=== PATIENT | female | born 1985 | race Caucasian/White ===

== ENCOUNTER 2018-08-24 23:30 | Emergency (ER) | payer OTHER, SELFPAY ==
[2018-08-24 23:35] VITALS: BP 174/96; PULSE 104; RESP 18; TEMP 36.8; O2SAT 100; BMI 29.2
--- NOTE | 2018-08-24 23:39 | ED.LOWEXIN ---
HPI - Extremity Injury (Lower) General Chief Complaint: Extremity Injury, Lower Stated Complaint: RIGHT ANKLE/FOOT INJURY TODAY Time Seen by Provider: 08/24/18 23:39 Source: patient Mode of arrival: wheelchair Limitations: no limitations History of Present Illness HPI Narrative: 32-year-old female here for evaluation of right foot injury. She states that prior to arrival she was walking with a load of laundry when she fell over after tripping. States she rolled over her right foot. Has had pain on her foot since then. No other injuries reported from the event except for some abrasions over her knee. No prior injury to this foot. Related Data Home Medications Medication Instructions Recorded Confirmed albuterol sulfate [Ventolin HFA] 2 puff INH Q2HP #0 09/22/12 Previous Rx's Medication Instructions Recorded amoxicillin-pot clavulanate 875 mg PO BID #20 tab 10/04/16 [Augmentin] Allergies Allergy/AdvReac Type Severity Reaction Status Date / Time Sulfa (Sulfonamide Allergy Unknown Unverified 08/15/17 11:48 Antibiotics) [SULFA (SULFONAMIDE ANTIBIOTICS)] Review of Systems Constitutional Denies headache(s) ENT Ears, Nose, Mouth, and Throat: Denies headache(s) Musculoskeletal Comments: Right foot pain Integumentary/Breasts Comments: Abrasions over the right knee Neurologic Denies headache(s) Comments: Tingling in the toes of the right feet Hematologic/Lymphatic Denies easy bleeding and Denies easy bruising PFSH Medical History Healthy adult (Acute) Social History Smoking Status: Current every day smoker Social History Smoking Status: Current every day smoker Exam Initial Vital Signs Initial Vital Signs: Vital Signs Temperature 98.2 F 08/24/18 23:35 Pulse Rate 104 H 08/24/18 23:35 Respiratory Rate 18 08/24/18 23:35 Blood Pressure 174/96 H 08/24/18 23:35 Pulse Oximetry 100 08/24/18 23:35 Const General: cooperative, well developed, well groomed and No acute distress Orientation: alert, awake and oriented x3 Cardio Pulses: dorsalis pedis present on the right Skin Other: Superficial abrasions to the anterior portion of the right knee Neuro Other: Sensation intact to light touch right lower extremity Extrem General: capillary refill normal Other: Full range of motion right knee. Proximal fibula unremarkable. Patient has no tenderness around the ankle or the Achilles tendon. She is tender to palpation of the dorsum of her foot on the plantar aspect of her foot. Psych Appearance: grossly normal and well kempt Procedures Orthopedic Splinting/Casting Injury #1: Side: right Lower Extremity Injury Location: foot Lower Extremity Immobilizer: posterior splint Other Orthopedic Equipment: crutches Post splinting neuro exam: intact and no change Post splinting vascular exam: intact Placed by: Provider Course Orders Ordered: ED Orders 08/24/18 23:41 XR foot RT min 3V Stat Vital Signs - 8 hr 08/24/18 23:35 Temperature 98.2 F Pulse Rate 104 H Respiratory Rate 18 Blood Pressure 174/96 H Pulse Oximetry 100 MDM - Extremity Injury (Lower) Imaging Data X-ray foot: Attestation: I personally reviewed and interpreted this imaging study as follows: My impression: Nondisplaced fracture base of 4th metatarsal MDM Narrative Medical decision making narrative: Patient is neurovascularly intact. Appears to be a fracture at the base of the 4th metatarsal. She was placed in a posterior splint and given crutches. She was given follow-up instructions and care instructions. She expressed understanding and agreement with plan. Patient declined the offer for pain medication. Discharge Plan Departure Patient Disposition: Home Clinical Impression: Foot fracture, right Qualifiers: Encounter type: initial encounter Fracture type: closed Qualified Code(s): S92.901A - Unspecified fracture of right foot, initial encounter for closed fracture Instructions: How to Use Crutches, DI for Foot Fracture, How to Take Care of Your Splint Activity Restrictions/Additional Instructions: On Sunday morning contact your primary doctor and also the [facility] at [phone]. you can do Tylenol and/or ibuprofen for any pain. you need to keep the splint on and keep it clean and keep it dry. return to the emergency department for any new or worsening symptoms Prescriptions: No Action albuterol sulfate [Ventolin HFA] 90 MCG/PUFF HFA aerosol inhaler 2 puff INH Q2HP Qty: 0 RF: 0 amoxicillin-pot clavulanate [Augmentin] 875 MG/125 MG tablet 875 mg PO BID Qty: 20 RF: 0 Stand Alone Forms: Work Release Note
--- NOTE | 2018-08-24 23:41 | DI.RAD.S_ITS ---
PROCEDURE: XR FOOT RT MIN 3V INDICATIONS: Fall off curb TECHNIQUE: 3 views of the foot were acquired. COMPARISON: None. FINDINGS: Bones: There is a horizontal nondisplaced fracture of the base of the fourth metatarsal. There is no second or third metatarsal fracture. There is no dislocation. Soft tissues: No tibiotalar joint effusion. Achilles tendon appears normal. IMPRESSION: Isolated nondisplaced fracture of the base of the fourth metatarsal, in near anatomic alignment. Dictated by: Nacho Hoyos M.D. on 08/25/2018 at 8:19 Approved by: Nacho Hoyos M.D. on 08/25/2018 at 8:20
== END 2018-08-25 00:37 | disposition home or self-care (01) ==
PROVIDERS: Emergency Provider Emergency Medicine
DX: S92.901A Unspecified fracture of right foot, initial encounter for closed fracture (principal); W19.XXXA Unspecified fall, initial encounter
CPT/HCPCS: 29515; 73630; 99282; 99283

== ENCOUNTER → 2018-11-14 16:44 | Outpatient (CLI) | payer OTHER, SELFPAY | PROVIDERS: Visit Provider Physician Assistant | DX: J02.9 Acute pharyngitis, unspecified (principal) | CPT/HCPCS: 87070; 87077; 87147 ==

== ENCOUNTER → 2019-02-19 16:16 | Outpatient (CLI) | payer OTHER, SELFPAY | PROVIDERS: Visit Provider Nurse Practitioner | DX: N89.8 Other specified noninflammatory disorders of vagina (principal); R30.0 Dysuria | CPT/HCPCS: 87086; 87210 ==

== ENCOUNTER 2019-12-19 15:44 | Emergency (ER) | payer OTHER, SELFPAY ==
[2019-12-19 15:55] VITALS: BP 157/99; PULSE 88; RESP 16; TEMP 36.9; O2SAT 98; BMI 32.0
--- NOTE | 2019-12-19 17:30 | DI.RAD.S_ITS ---
PROCEDURE: XR ABDOMEN MIN 2V INDICATIONS: constipation / abd pain TECHNIQUE: 2 views of the abdomen were acquired. COMPARISON: None. FINDINGS: Surgical changes and devices: None. Bowel: No pneumoperitoneum. Nonspecific bowel gas pattern with multiple air-filled nondilated loops of small bowel throughout the abdomen. Soft tissues: An IUD is seen projecting over the pelvis. No suspicious abdominal calcifications. Bones: No suspicious bony abnormalities. IMPRESSION: Nonspecific bowel gas pattern with multiple nondilated air-filled loops of bowel throughout the abdomen. Dictated by: Julio Arango M.D. on 12/19/2019 at 18:44 Approved by: Julio Arango M.D. on 12/19/2019 at 18:46
[2019-12-19 17:50] LABS: Add Manual Diff / Slide Review NO; Basophils Absolute Auto 0 /uL (0-100); Basophils Percent Auto 0.3 % (0-2); Eosinophils Absolute Auto 100 /uL (0-450); Eosinophils Percent Auto 1.2 % (2-4); Hematocrit 39.7 % (36-46); Hemoglobin 13.8 g/dL (12.0-16.0); Lymphocytes Absolute Auto 2000 /uL (1100-4500); Lymphocytes Percent Auto 27.5 % (25-40); Mean Corpuscular HGB Conc 34.7 % (30-36); Mean Corpuscular Hemoglobin 33.9 PG (26-34); Mean Corpuscular Volume 97.8 fL (80-100); Monocytes Absolute Auto 600 /uL (0-900); Monocytes Percent Auto 7.7 % (3-14); Neutrophils Absolute Auto 4700 /uL (1500-7000); Neutrophils Percent Auto 63.3 % (50-75); Platelet Count 174 X10^3/uL (150-400); Red Blood Cell Count 4.06 X10^6/uL (4.0-5.2); Red Cell Distribution Width 11.9 % (11.6-14.8); White Blood Cell Count 7.4 X10^3/uL (4.5-11.0)
[2019-12-19 17:56] LABS: INR 1.2 (0.9-1.3); Prothrombin Time 13.9 SECONDS (10.1-12.7)
[2019-12-19 17:59] LABS: PTT Partial Thromboplastin Tim 32 SECONDS (26.4-36.2)
[2019-12-19 18:02] LABS: Alanine Aminotransferase 447 IU/L (<35); Albumin 5.2 g/dL (3.5-5.0); Albumin Globulin Ratio 1.3 (1.0-2.8); Alkaline Phosphatase 71 U/L (38-126); Aspartate Aminotransferase 439 IU/L (14-36); BUN Creatinine Ratio 29.4 (6-22); Bilirubin Total 1.1 mg/dL (0.2-1.3); Blood Urea Nitrogen 15 mg/dL (7-17); Calcium 10.4 mg/dL (8.4-10.2); Carbon Dioxide 24 mmol/L (22-32); Chloride 101 mmol/L (98-107); Estimated Glomerular Filt Rate > 60.0 mL/min (>60); Globulin 4.1 g/dL (1.7-4.1); Glucose 88 mg/dL (70-100); HEMOLYSIS < 15 (0-50); Lipase 85 U/L (23-300); Potassium 4.1 mmol/L (3.4-5.1); Sodium 137 mmol/L (137-145); Total Protein 9.3 g/dL (6.3-8.2)
[2019-12-19 18:07] LABS: Bacteria Urine Moderate (10-30); Culture Indicated Urine Specimen Cultured; RBC Urine None Seen (0-5/HPF); Squamous Epithelial Cell Urine 5-10 /HPF (0-5/HPF); Urine Comments LEU ESTERASE +; WBC Urine 1-5/HPF (0-5/HPF)
--- NOTE | 2019-12-19 19:31 | ED_ITS ---
HPI - Abdominal Pain General Chief Complaint: Abdominal Pain Stated Complaint: RIGHT SIDE ABD PAIN Time Seen by Provider: 12/19/19 18:08 Source: patient Mode of arrival: Ambulatory Limitations: no limitations History of Present Illness HPI narrative: 34F smoker and heavy daily drinker presents with upwards of 2 weeks of constipation and right sided abdominal pain. She has had no fever chills, no nausea, vomiting, or diarrhea. Her pain is worse with motion and improves with rest. She denies any dietary change, new medications. She has had no exposure to persons with similar symptoms and is otherwise well and free of complaint. MD complaint: abdominal pain Onset (ago): week(s) Pain Consistency: constant Location: diffuse, RUQ and R flank Severity: moderate Quality: cramping and aching Radiation: none Migration to: no migration Relieving factors: rest Exacerbating factors: movement Associated symptoms: nausea Related Data Patient : No Home Medications Medication Instructions Recorded Confirmed albuterol sulfate [Ventolin HFA] 2 puff INH Q2HP #0 09/22/12 12/19/19 Allergies Allergy/AdvReac Type Severity Reaction Status Date / Time Sulfa (Sulfonamide Allergy Unknown Verified 12/19/19 15:59 Antibiotics) [SULFA (SULFONAMIDE ANTIBIOTICS)] Review of Systems Constitutional Constitutional: Denies chills, Denies fatigue, Denies fever(s), Denies frequent falls, Denies lethargy and Denies weakness Eyes Eyes: Denies change in vision, Denies eye discharge, Denies irritation and Denies loss of vision ENT Ears, Nose, Mouth, and Throat: Denies change in voice, Denies dizziness, Denies neck pain, Denies sore throat and Denies throat swelling Cardiovascular Cardiovascular: Denies chest pain, Denies irregular heart rhythm, Denies lightheadedness, Denies palpitations, Denies dyspnea, Denies dyspnea on exertion and Denies orthopnea Respiratory Respiratory: Denies cough, Denies dyspnea, Denies dyspnea on exertion and Denies wheezing Gastrointestinal Gastrointestinal: Reports abdominal pain, Denies change in bowel habits, Reports constipation, Denies diarrhea, Reports nausea and Denies vomiting Musculoskeletal Musculoskeletal: Denies neck pain and Denies numbness Integumentary/Breasts Skin/Breast: Denies pruritus, Denies erythema, Denies rash and Denies wounds Neurologic Neurologic: Denies behavioral changes, Denies confusion, Denies dizziness, Denies frequent falls, Denies loss of vision, Denies numbness and Denies weakness Psychiatric Psychiatric: Denies anxiety, Denies behavioral changes, Denies confusion, Denies depression, Denies homicidal ideation and Denies suicidal ideation Endocrine Endocrine: Denies fatigue, Denies flushing and Denies palpitations Hematologic/Lymphatic Hematologic/Lymphatic: Denies easy bruising Allergic/Immunologic Allergic/Immunologic: Denies urticaria, Denies throat swelling and Denies wheezing Patient History Medical History Healthy adult (Acute) Social History Smoking Status: Current every day smoker Smoking Status: Current every day smoker alcohol intake frequency: 0-2 drinks per day Substance Use Type: does not use Exam Narrative Exam Narrative: GENERAL: [34] year old patient appears stated age. Well- nourished, well-developed patient, in mild distress. Obviously uncomfortable HEAD: Atraumatic. Normocephalic. EYES: Pupils equal round and reactive. Extraocular motions intact. No scleral icterus. No injection or drainage. ENT: Nose without bleeding, purulent drainage. Throat without erythema, tonsillar hypertrophy or exudate. Airway patent. NECK: Trachea midline. Non tender CARDIOVASCULAR: Regular rate and rhythm without murmurs, gallops, or rubs. RESPIRATORY: Clear to auscultation. Breath sounds equal bilaterally. No wheezes, rales, or rhonchi. GASTROINTESTINAL: Abdomen soft, tender in the right upper quadrant, nondistended. Bowel sounds present in all 4 quadrants. EXTREMITIES: No edema or joint tenderness. BACK: Nontender without deformity or crepitance. No flank tenderness. NEURO: AOx3. SKIN: No rash or erythema of visible areas Initial Vital Signs Initial Vital Signs: Vital Signs Temperature 98.4 F 12/19/19 15:55 Pulse Rate 88 12/19/19 15:55 Respiratory Rate 16 12/19/19 15:55 Blood Pressure 157/99 H 12/19/19 15:55 Pulse Oximetry 98 12/19/19 15:55 Course Orders Ordered: ED Orders 12/19/19 17:30 XR abdomen min 2V Stat 12/19/19 17:40 Complete Blood Count AUTO DIFF Stat Comprehensive Metabolic Panel Stat Lipase Stat Partial Thromboplastin Time Stat Prothrombin Time INR Stat 12/19/19 17:47 Urine Culture Stat Urine Microscopic Stat 12/19/19 19:38 US abdomen limited Stat 12/19/19 22:45 Hepatitis Acute Panel Stat Discontinued Medications Sodium Chloride (Normal Saline 0.9%) 1,000 mls @ 1,000 mls/hr IV BOLUS ONE Stop: 12/19/19 20:36 Last Infusion: 12/19/19 22:58 Dose: 0 mls/hr Documented by: Admin: 12/19/19 20:14 Dose: 1,000 mls/hr Documented by: AMILCAR Vital Signs Vital signs: Vital Signs - 8 hr 12/19/19 19:32 12/19/19 23:06 Pulse Rate 78 81 Respiratory Rate 17 18 Blood Pressure 162/94 H 155/101 H Pulse Oximetry 98 100 MDM - Abdominal Pain Lab Data Result diagrams: 12/19/19 17:40 12/19/19 17:40 Labs: Lab Results 12/19/19 12/19/19 12/19/19 Range/Units 17:40 17:40 17:40 WBC 7.4 (4.5-11.0) X10^3/uL RBC 4.06 (4.0-5.2) X10^6/uL Hgb 13.8 (12.0-16.0) g/dL Hct 39.7 (36-46) % MCV 97.8 (80-100) fL MCH 33.9 (26-34) PG MCHC 34.7 (30-36) % RDW 11.9 (11.6-14.8) % Plt Count 174 (150-400) X10^3/uL Neut % (Auto) 63.3 (50-75) % Lymph % (Auto) 27.5 (25-40) % Ballard % (Auto) 7.7 (3-14) % Eos % (Auto) 1.2 L (2-4) % Baso % (Auto) 0.3 (0-2) % Neut # (Auto) 4700 (2001-7938) /uL Lymph # (Auto) 2000 (8497-3973) /uL Ballard # (Auto) 600 (0-900) /uL Eos # (Auto) 100 (0-450) /uL Baso # (Auto) 0 (0-100) /uL PT 13.9 H (10.1-12.7) SECONDS INR 1.2 (0.9-1.3) APTT 32 (26.4-36.2) SECONDS Sodium 137 (137-145) mmol/L Potassium 4.1 (3.4-5.1) mmol/L Chloride 101 (98-107) mmol/L Carbon Dioxide 24 (22-32) mmol/L BUN 15 (7-17) mg/dL Creatinine 0.51 L (0.52-1.04) mg/dL Estimated GFR > 60.0 (>60) mL/min BUN/Creatinine Ratio 29.4 H (6-22) Glucose 88 (70-100) mg/dL Calcium 10.4 H (8.4-10.2) mg/dL Total Bilirubin 1.1 (0.2-1.3) mg/dL AST 439 H (14-36) IU/L ALT 447 H (<35) IU/L Alkaline Phosphatase 71 (38-126) U/L Total Protein 9.3 H (6.3-8.2) g/dL Albumin 5.2 H (3.5-5.0) g/dL Globulin 4.1 (1.7-4.1) g/dL Albumin/Globulin Ratio 1.3 (1.0-2.8) Lipase 85 (23-300) U/L Urine RBC (0-5/HPF) Urine WBC (0-5/HPF) Ur Squamous Epith Cells (0-5/HPF) Urine Bacteria (None) Ur Culture Indicated? Micro UA Comment 12/19/19 Range/Units 17:47 WBC (4.5-11.0) X10^3/uL RBC (4.0-5.2) X10^6/uL Hgb (12.0-16.0) g/dL Hct (36-46) % MCV (80-100) fL MCH (26-34) PG MCHC (30-36) % RDW (11.6-14.8) % Plt Count (150-400) X10^3/uL Neut % (Auto) (50-75) % Lymph % (Auto) (25-40) % Ballard % (Auto) (3-14) % Eos % (Auto) (2-4) % Baso % (Auto) (0-2) % Neut # (Auto) (5585-8559) /uL Lymph # (Auto) (6369-0099) /uL Ballard # (Auto) (0-900) /uL Eos # (Auto) (0-450) /uL Baso # (Auto) (0-100) /uL PT (10.1-12.7) SECONDS INR (0.9-1.3) APTT (26.4-36.2) SECONDS Sodium (137-145) mmol/L Potassium (3.4-5.1) mmol/L Chloride (98-107) mmol/L Carbon Dioxide (22-32) mmol/L BUN (7-17) mg/dL Creatinine (0.52-1.04) mg/dL Estimated GFR (>60) mL/min BUN/Creatinine Ratio (6-22) Glucose (70-100) mg/dL Calcium (8.4-10.2) mg/dL Total Bilirubin (0.2-1.3) mg/dL AST (14-36) IU/L ALT (<35) IU/L Alkaline Phosphatase (38-126) U/L Total Protein (6.3-8.2) g/dL Albumin (3.5-5.0) g/dL Globulin (1.7-4.1) g/dL Albumin/Globulin Ratio (1.0-2.8) Lipase (23-300) U/L Urine RBC None seen (0-5/HPF) Urine WBC 1-5/hpf (0-5/HPF) Ur Squamous Epith Cells 5-10 /hpf H (0-5/HPF) Urine Bacteria Moderate (10-30) H (None) Ur Culture Indicated? Specimen cultured Micro UA Comment Vonda esterase + Point of care testing: Point of Care Testing Test Results Negative Urine Dip Bedside Urine Glucose Negative Bedside Urine Bilirubin + 1 Bedside Urine Ketone +/- 5 Urine Specific [place] 1.020 Bedside Urine Occult Blood - Negative Bedside Urine pH 5.5 Bedside Urine Protein - Negative Bedside Urine Urobilinogen +/- 1mg Bedside Urine Nitrite - Negative Bedside Urine Leukocytes ++ 125 Esterase Imaging Data Abdominal x-ray: Attestation: I personally reviewed and interpreted this imaging study as follows: My Impression: No SBO Radiologist's Impression: Natasha Benítez 34 F [address] [address] XRay Report Signed Patient: Natasha Benítez [facility]#: [id number] : 1985Acct:[id number] Age/Sex: 34 / FDate of Service: 12/19/19 Loc: ED Accession Number: [id number] Procedure: XR abdomen min 2V Ordering Provider: Yoshi Aquino MD PROCEDURE: XR ABDOMEN MIN 2V INDICATIONS: constipation / abd pain TECHNIQUE: 2 views of the abdomen were acquired. COMPARISON: None. FINDINGS: Surgical changes and devices: None. Bowel: No pneumoperitoneum. Nonspecific bowel gas pattern with multiple air- filled nondilated loops of small bowel throughout the abdomen. Soft tissues: An IUD is seen projecting over the pelvis. No suspicious ab dominal calcifications. Bones: No suspicious bony abnormalities. IMPRESSION: Nonspecific bowel gas pattern with multiple nondilated air-filled loops of bowel throughout the abdomen. Dictated by: Julio Arango M.D. on 12/19/2019 at 18:44 Approved by: Julio Arango M.D. on 12/19/2019 at 18:46 US - abdomen: Radiologist's Impression: Chart Viewer Diagnostics DATE TYPE STATUS REF RANGE/AUTHOR Hx 12/19/19 19:38 Julio Arango 12/19/19 17:30 Julio Arango 08/24/18 23:41 RomainNacho Natasha Benítez N 34, F1985 DEP ER, [facility] ED 157.48cm 79.379kg BMI: 32.0kg/m? Abdominal Pain Search Chart No Data to Display ONSET 12/19/19 23:06 Natasha Benítez N 34 F [address] [address] Ultrasound Report Signed Patient: Natasha Benítez [facility]#: [id number] : 1985Acct:[id number] Age/Sex: 34 / FDate of Service: 12/19/19 Loc: ED Accession Number: [id number] Procedure: US abdomen limited Ordering Provider: Anil Aggarwal D.O. PROCEDURE: US ABDOMEN LIMITED INDICATIONS: PAIN; ELEVATED LFTS TECHNIQUE: Real-time scanning was performed of the abdominal and retroperitoneal organs, with image documentation. COMPARISON: None. FINDINGS: Liver: Diffusely increased echogenicity is seen in the liver with attenuation of the posterior structures. The liver is normal in size. Gallbladder: The gallbladder appears normal without gallstones or gallbladder wall thickening. Biliary ducts: Intrahepatic bile ducts are non-dilated. Extrahepatic bile duct caliber measures 5 mm. Normal is 6-7 mm or less in diameter, or 10 mm or less post-cholecystectomy. Pancreas: Visualized portions of the pancreas are sonographically normal. Miscellaneous: No free right upper quadrant fluid. IMPRESSION: Increased hepatic echogenicity noted possibly related to hepatic steatosis but other sources of hepatocellular disease cannot be excluded. Recommend clinical correlation. Dictated by: Julio Arango M.D. on 12/19/2019 at 21:27 Approved by: Julio Arango M.D. on 12/19/2019 at 21:29 MDM Narrative Medical decision making narrative: Multiple etiologies for patient's symptoms considered including: [Viral hepatitis versus gallbladder disease versus bowel obstruction versus nonspecific enteritis versus other] Patient's symptoms improved over duration of stay with above-stated therapies. Findings and discharge diagnosis discussed with patient/family followed by verbalization of understanding Return precautions discussed with patient/family whom verbalize understanding. Discharge Plan Departure Patient Disposition: Home Clinical Impression: Elevated transaminase level Abdominal pain Qualifiers: Abdominal location: generalized Qualified Code(s): R10.84 - Generalized abdominal pain Constipation Qualifiers: Constipation type: unspecified constipation type Qualified Code(s): K59.00 - Constipation, unspecified Discharge Date/Time: 12/19/19 23:08 Instructions: DI for Abdominal Pain-Adult, DI for Constipation Activity Restrictions/Additional Instructions: *You have been diagnosed with [constipation and elevated liver enzymes] *What to do: *Take medications as directed *Follow up with your primary care provider in 2-3 days, call for an appointment. Let them know you were seen in the Emergency Department and that we ask that you be seen in follow up *Return to ER if you should have any new, worsening or concerning symptom *You have been diagnosed with [ abdominal pain due to constipation ] *What to do: *Take over the counter medications as directed: 1. Metamucil - is a bulk forming laxative and adds fiber 2. Colace - softens your stool 3. Dulcolax suppository - stimulates your bowels *Follow up with your primary care provider in 2-3 days, call for appo intment *Return to ER if you should have any new, worsening or concerning symptoms *Drink plenty of water and eat foods high in fiber *Stay as active as you can as this helps move your bowels as well Prescriptions: No Action albuterol sulfate [Ventolin HFA] 90 MCG/PUFF HFA aerosol inhaler 2 puff INH Q2HP Qty: 0 RF: 0
[2019-12-19 19:32] VITALS: BP 162/94; PULSE 78; RESP 17; O2SAT 98
--- NOTE | 2019-12-19 19:38 | DI.US.S_ITS ---
PROCEDURE: US ABDOMEN LIMITED INDICATIONS: PAIN; ELEVATED LFTS TECHNIQUE: Real-time scanning was performed of the abdominal and retroperitoneal organs, with image documentation. COMPARISON: None. FINDINGS: Liver: Diffusely increased echogenicity is seen in the liver with attenuation of the posterior structures. The liver is normal in size. Gallbladder: The gallbladder appears normal without gallstones or gallbladder wall thickening. Biliary ducts: Intrahepatic bile ducts are non-dilated. Extrahepatic bile duct caliber measures 5 mm. Normal is 6-7 mm or less in diameter, or 10 mm or less post-cholecystectomy. Pancreas: Visualized portions of the pancreas are sonographically normal. Miscellaneous: No free right upper quadrant fluid. IMPRESSION: Increased hepatic echogenicity noted possibly related to hepatic steatosis but other sources of hepatocellular disease cannot be excluded. Recommend clinical correlation. Dictated by: Julio Arango M.D. on 12/19/2019 at 21:27 Approved by: Julio Arango M.D. on 12/19/2019 at 21:29
[2019-12-19] MEDS: SODIUM CHLORIDE 0.9% 1,000 ML 1000 ML IV (20:14)
[2019-12-19 23:06] VITALS: BP 155/101; PULSE 81; RESP 18; O2SAT 100
[2019-12-21 06:38] LABS: HBsAg Screen Negative (Negative); Hepatitis A Antibody IgM Negative (Negative); Hepatitis B Core Antibody IgM Negative (Negative); Hepatitis C Antibody <0.1 s/co ratio (0.0-0.9)
== END 2019-12-19 23:08 | disposition home or self-care (01) ==
PROVIDERS: Emergency Medicine; Emergency Provider Emergency Medicine
DX: R10.84 Generalized abdominal pain (principal); R74.0 Nonspecific elevation of levels of transaminase and lactic acid dehydrogenase [LDH]; K59.00 Constipation, unspecified; R11.0 Nausea
CPT/HCPCS: 36415; 74019; 76705; 80053; 80074; 81003; 81015; 81025; 83690; 85025; 85610; 85730; 87086; 93005; 93010; 96360; 96361; 99284

== ENCOUNTER → 2020-01-28 15:45 | Outpatient (CLI) | payer OTHER, SELFPAY ==
[2020-01-28 16:33] LABS: Alanine Aminotransferase 358 IU/L (<35); Albumin 4.7 g/dL (3.5-5.0); Albumin Globulin Ratio 1.5 (1.0-2.8); Alkaline Phosphatase 65 U/L (38-126); Aspartate Aminotransferase 281 IU/L (14-36); BUN Creatinine Ratio 20.4 (6-22); Bilirubin Total 0.6 mg/dL (0.2-1.3); Blood Urea Nitrogen 11 mg/dL (7-17); Carbon Dioxide 26 mmol/L (22-32); Chloride 100 mmol/L (98-107); Estimated Glomerular Filt Rate > 60.0 mL/min (>60); Globulin 3.2 g/dL (1.7-4.1); Glucose 88 mg/dL (70-100); HEMOLYSIS < 15 (0-50); Potassium 4.5 mmol/L (3.4-5.1); Sodium 136 mmol/L (137-145); Total Protein 7.9 g/dL (6.3-8.2)
== END ==
PROVIDERS: PCP Family Medicine; Referring Provider Family Medicine; Visit Provider Family Medicine
DX: R74.0 Nonspecific elevation of levels of transaminase and lactic acid dehydrogenase [LDH] (principal)
CPT/HCPCS: 36415; 80053

== ENCOUNTER → 2020-12-22 16:09 | Outpatient (CLI) | payer OTHER, SELFPAY | PROVIDERS: PCP Family Medicine; Visit Provider Nurse Practitioner | DX: N34.3 Urethral syndrome, unspecified (principal) | CPT/HCPCS: 87086 ==

== ENCOUNTER → 2023-08-07 16:09 | Outpatient (CLI) | payer OTHER, SELFPAY | LOC: LAB 16:14 | PROVIDERS: PCP Family Medicine; Visit Provider Nurse Practitioner Family | DX: N39.0 Urinary tract infection, site not specified (principal) | CPT/HCPCS: 87077; 87086; 87186 ==

== ENCOUNTER → 2024-07-30 13:13 | Outpatient (CLI) | payer OTHER, SELFPAY ==
--- NOTE | 2024-07-30 13:15 | DI.RAD.S_ITS ---
PROCEDURE: XR ANKLE RT MIN 3V INDICATIONS: Right foot and ankle injury TECHNIQUE: 3 views of the ankle were acquired. COMPARISON: None. FINDINGS: Bones: No fractures or dislocations. Ankle mortise is normally aligned. No suspicious bony lesions. Soft tissues: No tibiotalar joint effusion. Achilles tendon appears normal. IMPRESSION: No acute bony abnormality or significant effusion. Dictated by: aNto Song M.D. on 07/30/2024 at 14:12 Approved by: Nato Song M.D. on 07/30/2024 at 14:13
--- NOTE | 2024-07-30 13:15 | DI.RAD.S_ITS ---
PROCEDURE: XR FOOT RT MIN 3V INDICATIONS: Right foot and ankle injury TECHNIQUE: 3 views of the foot were acquired. COMPARISON: None. FINDINGS: Bones: No fractures or dislocations. No suspicious bony lesions. Soft tissues: No tibiotalar joint effusion. Achilles tendon appears normal. IMPRESSION: No acute bony abnormality. Dictated by: Nato Song M.D. on 07/30/2024 at 14:14 Approved by: Nato Song M.D. on 07/30/2024 at 14:14
== END ==
PROVIDERS: PCP Family Medicine; Referring Provider Physician Assistant Surgical; Visit Provider Physician Assistant Surgical
DX: S99.911A Unspecified injury of right ankle, initial encounter (principal); S99.921A Unspecified injury of right foot, initial encounter; X58.XXXA Exposure to other specified factors, initial encounter
CPT/HCPCS: 73610; 73630

== ENCOUNTER → 2024-09-08 11:11 | Outpatient (CLI) | payer OTHER, SELFPAY ==
--- NOTE | 2024-09-08 11:12 | DI.MRI.S_ITS ---
POCEDURE: MR ANKLE RT WO CON INDICATIONS: R/O HIGH RIGHT ANKLE SPRAIN TECHNIQUE: Noncontrast sagittal T1 spin echo and T2 fast spin echo with fat saturation, axial proton density fast spin echo and T2 fast spin echo with fat saturation, coronal T1 spin echo and T2 fast spin echo with fat saturation through the ankle/hindfoot. COMPARISON: None. FINDINGS: Image quality: Excellent Tendons: Mild tenosynovitis of the posterior tibialis. The flexor digitorum longus, and the flexor hallucis longus are unremarkable. The extensor tendons are unremarkable. The peroneal longus, and the peroneal brevis are unremarkable. Mild tendinosis of the distal Achilles tendon, without tear. Ligaments: There is small periosteal avulsion fracture of the anterior lateral aspect of the tibial plafond, at the insertion of the anterior tibiofibular ligament, with mild marrow edema (04:24, and 03:24). Marked sprain of the anterior tibiofibular ligament, without tear. The posterior tibiofibular ligament is intact. Sprain of the anterior talofibular ligament, without full-thickness tear. The posterior talofibular ligament is intact. The calcaneal fibular ligament is intact. The deep portion of the deltoid ligament is unremarkable. Sinus tarsi: No fibrosis Plantar fascia: Mild thickening of the central cord, raising concern for plantar fasciitis. Muscles: Mild muscle edema of the abductor hallucis, at the level of the midfoot, likely representing mild muscle strain. No fatty atrophy. Bones: Please see above. Mild degenerative changes of the 1st tarsometatarsal joint, with mild subchondral marrow edema. Small tibiotalar and posterior subtalar effusion. IMPRESSION: 1. Small periosteal avulsion fracture of the anterior lateral aspect of the tibial plafond, at the insertion of the anterior tibiofibular ligament, with mild marrow edema. Marked sprain of the anterior tibiofibular ligament, without tear. 2. Sprain of the anterior talofibular ligament. 3. Plantar fasciitis. 4. Mild muscle strain of the abductor hallucis. 5. Mild degenerative changes 1st tarsometatarsal joint. Dictated by: Shayla Roman M.D. on 09/08/2024 at 13:44 Approved by: Shayla Roman M.D. on 09/08/2024 at 13:56
== END ==
PROVIDERS: PCP Family Medicine; Referring Provider Podiatrist Foot & Ankle Surgery; Visit Provider Podiatrist Foot & Ankle Surgery
DX: S82.871A Displaced pilon fracture of right tibia, initial encounter for closed fracture (principal); S93.431A Sprain of tibiofibular ligament of right ankle, initial encounter; S93.491A Sprain of other ligament of right ankle, initial encounter; S86.811A Strain of other muscle(s) and tendon(s) at lower leg level, right leg, initial encounter; M79.671 Pain in right foot; M72.2 Plantar fascial fibromatosis
CPT/HCPCS: 73721

== ENCOUNTER 2024-12-02 11:30 | Outpatient (RCR) | payer OTHER, SELFPAY ==
--- NOTE | 2024-10-16 12:53 | PT.OIE ---
Current Diagnoses Displaced avulsion fracture (chip fracture) of right talus, subsequent encounter for fracture with routine healing (10/16/24) Sprain of tibiofibular ligament of right ankle, subsequent encounter (10/16/24) Past Medical History (Last Reviewed 12/22/20 @ 17:29 by SANDHYA Denise) Healthy adult Visit Care Team Role Provider Type Onofre Dias MD Family Provider Non-Staff Primary Care Provider Specialty: Medical Address: [address] [place] [address], [id number] Email: Aurelio Mares DPM Attending Provider Physician Referring Provider Specialty: Orthopedics Orthopedic Surgery Podiatry General Surgery Address: [address] [place] [address], [id number] Email: [email or web address] Physical Therapy Initial Evaluation PT-OP-A Visit Information Start: 10/16/24 09:45 Freq: Status: Active Protocol: Document 10/16/24 09:46 BL (Rec: 10/16/24 12:53 BL Laptop) Out-Patient Physical Therapy Visit Information Visit Information Visit Type Initial Evaluation Visit Start Time 10:45 Visit Stop Time 11:25 Visit Number (1) 05/16 (PN by 11/15/24) Number of CLIENT INSIGHTS CONSULTANT Visits 0 Evaluation Information Evaluation Date 10/16/24 PT-OP-C Subjective Start: 10/16/24 09:45 Freq: Status: Active Protocol: Document 10/16/24 09:46 BL (Rec: 10/16/24 12:53 BL Laptop) OP-PT Subjective Patient Comments Patient Comments Pt presents to the clinic this date with concerns of R lateral ankle stiffness and minimal pain. Pt states at most recent follow up with privacy specialist she was instructed to wear boot at all times, including sleeping. Pt states she feels increased stiffness but that the pain has greatly improved. 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 States she is unable to go up and down steps without assistance. Pt reports she feels her ankle needs to pop, states improved feeling after working on ROM activities at home. Reports she continues to ice 2x daily and elevates as she can. States her biggest goals for therapy are to be able to return to work without pain. Patient Reported Improving Progress Patient Questionnaires Lower Extremity Functional Scale LEFS Score 17% function PT-OP-D Balance Start: 10/16/24 09:45 Freq: Status: Active Protocol: Document 10/16/24 09:46 BL (Rec: 10/16/24 12:53 BL Laptop) Balance Tests Single Limb Standing Single Limb- Right 1 second Single Limb- Left 1 second PT-OP-H Neuro Start: 10/16/24 09:45 Freq: Status: Active Protocol: Document 10/16/24 09:46 BL (Rec: 10/16/24 12:53 BL Laptop) Sensation Evaluation Comments Summary Comments Pt reports numbness on the bottom of her foot first thing in the morning that resolves within a few minutes Coordination Evaluation Comments Coordination pt reports no changes in coordination. Comments PT-OP-J Posture/Palpation/Skin Start: 10/16/24 09:45 Freq: Status: Active Protocol: Document 10/16/24 09:46 BL (Rec: 10/16/24 12:53 BL Laptop) Posture Evaluation Comments Posture Comments Pt presents with CAM boot and tennis shoe on L LE, demos drop in L pelvis likely due to boot, pt demos slight knee flexion in standing to R side. Skin pink and healthy with no further ecchymosis noted this date. Palpation Assessment Location R ankle Palpation Details Pt demos slight tenderness through lateral ankle over talofibular ligament, increased tissue resistance noted . PT-OP-K Range of Motion Start: 10/16/24 09:45 Freq: Status: Active Protocol: Document 10/16/24 09:46 BL (Rec: 10/16/24 12:53 BL Laptop) Hip Goniometric Range of Motion Hip ROM Limitations Comments HIP AROM porsche WFL Knee Goniometric Range of Motion Knee ROM Limitations Comments Knee AROM porsche WFL Ankle and Foot Goniometric Range of Motion Ankle and Foot Right Dorsiflexion with 2 Knee Flexed Plantarflexion 60 Inversion 25 Eversion 15 left Ankle/Foot ROM WFL Yes Dorsiflexion with 20 Knee Flexed Plantarflexion 60 Inversion 20 Eversion 30 PT-OP-Q Treatments Start: 10/16/24 09:45 Freq: Status: Active Protocol: Document 10/16/24 09:46 BL (Rec: 10/16/24 12:53 BL Laptop) Therapeutic Exercises Sitting Exercises strength Sitting Exercise arch lifts, Name ROM Sitting Exercise alphabet, windshield wipers, towel crunches, heel Name slides PT-OP-T Assessment and Plan Start: 10/16/24 09:45 Freq: Status: Active Protocol: Document 10/16/24 09:46 BL (Rec: 10/16/24 12:53 BL Laptop) Physical Therapy Assessment Rehab Potential Rehabilitation Good Potential Evaluation Complexity Number of Personal 1-2 Factors/ Comorbidities Number of Body 3 Systems Impaired Clinical Evolving Presentation at Evaluation Impairments Impairments Activity Tolerance,Balance,Coordination,Functional Activities,Functional Mobility,Gait,Pain,Posture,ROM, Sensation,Soft Tissue Mobility,Strength Goals Three Fruit Coordinator Goal (LTG) Pt will report being able to go up and down steps with step through pattern by DC for improved independence. Two Fruit Coordinator Goal (LTG) Pt will be able to stand on R LE in SLS x 15 seconds by DC for improved safety with ADLS. One Short Term Goal (STG pt will be ind with HEP within 2 visits in order to ) progress toward detention therapy goal outside of therapy visits [facility] Goal (LTG) Pt will demo improved LEFS score to 80 function or better by DC for return to work duties Assessment Summary Assessment Pt presents to the clinic with R MIGUELITO renteria in place, pt tripped in July of 2024 leading to inversion type sprain with avulsion fracture to distal fibula. Pt presents this date with limitations in ROM and strength as well as balance deficits. Pt will benefit from strength and endurance training in order to improve functional mobility and stability for safe return to PLOF. Physical Therapy Plan Frequency and Duration Frequency of 2x/Week Treatment Duration of 12 treatment (weeks) Plan of Care Start 10/16/24 Date Plan of Care End 01/08/25 Date Therapeutic Interventions Therapeutic Balance Training,Coordination Training,Gait Training, Interventions Home Exercise Program,Joint Mobilizations,Manual Therapy,Neuromuscular Re-education,Patient/Caregiver Education,Self-Care/Home Management,Sensory Integration ,Soft Tissue Mobilization,Taping,Therapeutic Activities ,Therapeutic Exercises Modalities Cold Pack/Ice Massage,Electric Stimulation,Hot Packs, Infrared Therapy,Iontophoresis,Paraffin Bath,Traction- Mechanical,Ultrasound Next Visit Focus/Plan Next Note Type Treatment Note Next Visit Plan ankle ROM, strength, Soft tissue mobilization, ankle intrinsics
--- NOTE | 2024-10-16 12:54 | PT.OPPOC ---
Physical, Occupational & Speech Therapy At [facility] Current Diagnoses Displaced avulsion fracture (chip fracture) of right talus, subsequent encounter for fracture with routine healing (10/16/24) Sprain of tibiofibular ligament of right ankle, subsequent encounter (10/16/24) Visit Care Team Role Provider Type Onofre Dias MD Family Provider Non-Staff Primary Care Provider Specialty: Medical Address: [address] [place] [address], [address] Email: Aurelio Mares DPM Attending Provider Physician Referring Provider Specialty: Orthopedics Orthopedic Surgery Podiatry General Surgery Address: [address] [place] [address], [place], [address] Email: [email or web address] Plan Of Care PT-OP-T Assessment and Plan Start: 10/16/24 09:45 Freq: Status: Active Protocol: Document 10/16/24 09:46 BL (Rec: 10/16/24 12:53 BL Laptop) Physical Therapy Assessment Rehab Potential Rehabilitation Good Potential Evaluation Complexity Number of Personal 1-2 Factors/ Comorbidities Number of Body 3 Systems Impaired Clinical Evolving Presentation at Evaluation Impairments Impairments Activity Tolerance,Balance,Coordination,Functional Activities,Functional Mobility,Gait,Pain,Posture,ROM, Sensation,Soft Tissue Mobility,Strength Goals Three District Fire Management Officer Goal (LTG) Pt will report being able to go up and down steps with step through pattern by DC for improved independence. Two District Fire Management Officer Goal (LTG) Pt will be able to stand on R LE in SLS x 15 seconds by DC for improved safety with ADLS. One Short Term Goal (STG pt will be ind with HEP within 2 visits in order to ) progress toward prison therapy goal outside of therapy visits [facility] Goal (LTG) Pt will demo improved LEFS score to 80 function or better by DC for return to work duties Assessment Summary Assessment Pt presents to the clinic with R CAM boot in place, pt tripped in July of 2024 leading to inversion type sprain with avulsion fracture to distal fibula. Pt presents this date with limitations in ROM and strength as well as balance deficits. Pt will benefit from strength and endurance training in order to improve functional mobility and stability for safe return to PLOF. Physical Therapy Plan Frequency and Duration Frequency of 2x/Week Treatment Duration of 12 treatment (weeks) Plan of Care Start 10/16/24 Plan of Care End 01/08/25 Date Therapeutic Interventions Therapeutic Balance Training,Coordination Training,Gait Training, Interventions Home Exercise Program,Joint Mobilizations,Manual Therapy,Neuromuscular Re-education,Patient/Caregiver Education,Self-Care/Home Management,Sensory Integration ,Soft Tissue Mobilization,Taping,Therapeutic Activities ,Therapeutic Exercises Modalities Cold Pack/Ice Massage,Electric Stimulation,Hot Packs, Infrared Therapy,Iontophoresis,Paraffin Bath,Traction- Mechanical,Ultrasound Next Visit Focus/Plan Next Note Type Treatment Note Next Visit Plan ankle ROM, strength, Soft tissue mobilization, ankle intrinsics Plan of Care Dates Plan of Care Start Date 10/16/24 Plan of Care End Date 01/08/25 Electronically Signed by: Santino French PT 10/16/24 2133 If you are in agreement with this Plan of Care, please return a signed and dated copy. I have reviewed this Plan of Care and certify that the skilled therapy services above are required to meet the patient?s needs. Physician Signature Date Printed Name and Credentials Clinical Instructor Signature Printed Name and Credentials
--- NOTE | 2024-10-21 10:26 | PT.OTN ---
Current Diagnoses Displaced avulsion fracture (chip fracture) of right talus, subsequent encounter for fracture with routine healing (10/21/24) Sprain of tibiofibular ligament of right ankle, subsequent encounter (10/21/24) Physical Therapy Treatment Note PT-OP-A Visit Information Start: 10/16/24 09:45 Freq: Status: Active Protocol: Document 10/21/24 09:51 BL (Rec: 10/21/24 10:26 BL Laptop) Out-Patient Physical Therapy Visit Information Visit Information Visit Type Treatment Note Visit Start Time 09:45 Visit Stop Time 10:25 Visit Number (2) 2/ (PN by 11/15/24) Number of FAT PRESSROOM WORKER Visits 0 PT-OP-C Subjective Start: 10/16/24 09:45 Freq: Status: Active Protocol: Document 10/21/24 09:51 BL (Rec: 10/21/24 10:26 BL Laptop) OP-PT Subjective Patient Comments Patient Comments Pt present to the clinic this date and reports she is doing well, HEP going well, states no increased soreness in ankle and reports she was pretty active over the weekend in her boot. PT-OP-D Balance Start: 10/16/24 09:45 Freq: Status: Active Protocol: Document 10/16/24 09:46 BL (Rec: 10/16/24 12:53 BL Laptop) Balance Tests Single Limb Standing Single Limb- Right 1 second Single Limb- Left 1 second PT-OP-H Neuro Start: 10/16/24 09:45 Freq: Status: Active Protocol: Document 10/16/24 09:46 BL (Rec: 10/16/24 12:53 BL Laptop) Sensation Evaluation Comments Summary Comments Pt reports numbness on the bottom of her foot first thing in the morning that resolves within a few minutes Coordination Evaluation Comments Coordination pt reports no changes in coordination. Comments PT-OP-J Posture/Palpation/Skin Start: 10/16/24 09:45 Freq: Status: Active Protocol: Document 10/16/24 09:46 BL (Rec: 10/16/24 12:53 BL Laptop) Posture Evaluation Comments Posture Comments Pt presents with CAM boot and tennis shoe on L LE, demos drop in L pelvis likely due to boot, pt demos slight knee flexion in standing to R side. Skin pink and healthy with no further ecchymosis noted this date. Palpation Assessment Location R ankle Palpation Details Pt demos slight tenderness through lateral ankle over talofibular ligament, increased tissue resistance noted . PT-OP-K Range of Motion Start: 10/16/24 09:45 Freq: Status: Active Protocol: Document 10/16/24 09:46 BL (Rec: 10/16/24 12:53 BL Laptop) Hip Goniometric Range of Motion Hip ROM Limitations Comments HIP AROM porsche WFL Knee Goniometric Range of Motion Knee ROM Limitations Comments Knee AROM porsche WFL Ankle and Foot Goniometric Range of Motion Ankle and Foot Right Dorsiflexion with 2 Knee Flexed Plantarflexion 60 Inversion 25 Eversion 15 left Ankle/Foot ROM WFL Yes Dorsiflexion with 20 Knee Flexed Plantarflexion 60 Inversion 20 Eversion 30 PT-OP-Q Treatments Start: 10/16/24 09:45 Freq: Status: Active Protocol: Document 10/21/24 09:51 BL (Rec: 10/21/24 10:26 BL Laptop) Therapeutic Exercises Sitting Exercises strength Sitting Exercise arch lifts, 4way TB, Name Resistance resistance lvl 1 ROM Sitting Exercise alphabet, windshield wipers, towel crunches, heel Name slides PT-OP-T Assessment and Plan Start: 10/16/24 09:45 Freq: Status: Active Protocol: Document 10/21/24 09:51 BL (Rec: 10/21/24 10:26 BL Laptop) Physical Therapy Assessment Goals Three Fci Goal (LTG) Pt will report being able to go up and down steps with step through pattern by DC for improved independence. Two Fci Goal (LTG) Pt will be able to stand on R LE in SLS x 15 seconds by DC for improved safety with ADLS. One Short Term Goal (STG pt will be ind with HEP within 2 visits in order to ) progress toward fpc therapy goal outside of therapy visits Nursery Laborer Goal (LTG) Pt will demo improved LEFS score to 80 function or better by DC for return to work duties Assessment Summary Assessment Pt demos good compliance with HEP and tolerates advancement well today. Pt continues to demo limitations in ROM and strength. Progress per pt tolerance. Physical Therapy Plan Frequency and Duration Frequency of 2x/Week Treatment Duration of 12 treatment (weeks) Plan of Care Start 10/16/24 Date Plan of Care End 01/08/25 Date Therapeutic Interventions Therapeutic Balance Training,Coordination Training,Gait Training, Interventions Home Exercise Program,Joint Mobilizations,Manual Therapy,Neuromuscular Re-education,Patient/Caregiver Education,Self-Care/Home Management,Sensory Integration ,Soft Tissue Mobilization,Taping,Therapeutic Activities ,Therapeutic Exercises Modalities Cold Pack/Ice Massage,Electric Stimulation,Hot Packs, Infrared Therapy,Iontophoresis,Paraffin Bath,Traction- Mechanical,Ultrasound Next Visit Focus/Plan Next Note Type Treatment Note Next Visit Plan ankle ROM, strength, Soft tissue mobilization, ankle intrinsics
--- NOTE | 2024-10-23 10:43 | PT.OTN ---
Current Diagnoses Displaced avulsion fracture (chip fracture) of right talus, subsequent encounter for fracture with routine healing (10/23/24) Sprain of tibiofibular ligament of right ankle, subsequent encounter (10/23/24) Physical Therapy Treatment Note PT-OP-A Visit Information Start: 10/16/24 09:45 Freq: Status: Active Protocol: Document 10/23/24 09:45 BL (Rec: 10/23/24 10:43 BL Laptop) Out-Patient Physical Therapy Visit Information Visit Information Visit Type Treatment Note Visit Start Time 09:45 Visit Stop Time 10: Visit Number (3) 3/ (PN by 11/15/24) Number of CUSTOMER ENGINEERING SPECIALIST Visits 0 PT-OP-C Subjective Start: 10/16/24 09:45 Freq: Status: Active Protocol: Document 10/23/24 09:45 BL (Rec: 10/23/24 10:43 BL Laptop) OP-PT Subjective Patient Comments Patient Comments Pt presents to the clinic this date and reports she is doing ok, feels she is sore following the exercise. PT-OP-D Balance Start: 10/16/24 09:45 Freq: Status: Active Protocol: Document 10/16/24 09:46 BL (Rec: 10/16/24 12:53 BL Laptop) Balance Tests Single Limb Standing Single Limb- Right 1 second Single Limb- Left 1 second PT-OP-H Neuro Start: 10/16/24 09:45 Freq: Status: Active Protocol: Document 10/16/24 09:46 BL (Rec: 10/16/24 12:53 BL Laptop) Sensation Evaluation Comments Summary Comments Pt reports numbness on the bottom of her foot first thing in the morning that resolves within a few minutes Coordination Evaluation Comments Coordination pt reports no changes in coordination. Comments PT-OP-J Posture/Palpation/Skin Start: 10/16/24 09:45 Freq: Status: Active Protocol: Document 10/16/24 09:46 BL (Rec: 10/16/24 12:53 BL Laptop) Posture Evaluation Comments Posture Comments Pt presents with CAM boot and tennis shoe on L LE, demos drop in L pelvis likely due to boot, pt demos slight knee flexion in standing to R side. Skin pink and healthy with no further ecchymosis noted this date. Palpation Assessment Location R ankle Palpation Details Pt demos slight tenderness through lateral ankle over talofibular ligament, increased tissue resistance noted . PT-OP-K Range of Motion Start: 10/16/24 09:45 Freq: Status: Active Protocol: Document 10/16/24 09:46 BL (Rec: 10/16/24 12:53 BL Laptop) Hip Goniometric Range of Motion Hip ROM Limitations Comments HIP AROM porsche WFL Knee Goniometric Range of Motion Knee ROM Limitations Comments Knee AROM porsche WFL Ankle and Foot Goniometric Range of Motion Ankle and Foot Right Dorsiflexion with 2 Knee Flexed Plantarflexion 60 Inversion 25 Eversion 15 left Ankle/Foot ROM WFL Yes Dorsiflexion with 20 Knee Flexed Plantarflexion 60 Inversion 20 Eversion 30 PT-OP-Q Treatments Start: 10/16/24 09:45 Freq: Status: Active Protocol: Document 10/23/24 09:45 BL (Rec: 10/23/24 10:43 BL Laptop) Therapeutic Exercises Sitting Exercises strength Sitting Exercise arch lifts, 4way TB, BAPS board Lvl3 Name Resistance resistance lvl 1 ROM Sitting Exercise alphabet, windshield wipers, towel crunches, heel Name slides Manual Therapy Treatment Consent Patient gave verbal Yes consent for manual treatment Joint Mobilizations R ankle Comments talo crural AP mob in closed chain, fibular head AP, talo crural distraction. Pt reports improved symptoms following. KT tape applied in fan formation to assist with inflammation. Pt reports understanding of precautions. PT-OP-T Assessment and Plan Start: 10/16/24 09:45 Freq: Status: Active Protocol: Document 10/23/24 09:45 BL (Rec: 10/23/24 10:43 BL Laptop) Physical Therapy Assessment Goals Three Automotive Service Management Teacher Goal (LTG) Pt will report being able to go up and down steps with step through pattern by DC for improved independence. Two Automotive Service Management Teacher Goal (LTG) Pt will be able to stand on R LE in SLS x 15 seconds by DC for improved safety with ADLS. One Short Term Goal (STG pt will be ind with HEP within 2 visits in order to ) progress toward [facility] therapy goal outside of therapy visits [facility] Goal (LTG) Pt will demo improved LEFS score to 80 function or better by DC for return to work duties Assessment Summary Assessment Pt demos good compliance with HEP and tolerates advancement well today. Trialed use of KT tape this date. Pt continues to demo limitations in ROM and strength. Progress per pt tolerance. Plant to follow up with pt after visit with podiatry team next week. Physical Therapy Plan Frequency and Duration Frequency of 2x/Week Treatment Duration of 12 treatment (weeks) Plan of Care Start 10/16/24 Date Plan of Care End 01/08/25 Date Next Visit Focus/Plan Next Note Type Treatment Note Next Visit Plan ankle ROM, strength, Soft tissue mobilization, ankle intrinsics
--- NOTE | 2024-11-04 13:14 | PT.OTN ---
Current Diagnoses Displaced avulsion fracture (chip fracture) of right talus, subsequent encounter for fracture with routine healing (11/04/24) Sprain of tibiofibular ligament of right ankle, subsequent encounter (11/04/24) Physical Therapy Treatment Note PT-OP-A Visit Information Start: 10/16/24 09:45 Freq: Status: Active Protocol: Document 11/04/24 11:41 BL (Rec: 11/04/24 13:14 BL Laptop) Out-Patient Physical Therapy Visit Information Visit Information Visit Type Treatment Note Visit Start Time 11:30 Visit Stop Time 12:10 Visit Number (4) 4/ (PN by 11/15/24) Number of WILDLIFE PROTECTOR Visits 0 PT-OP-C Subjective Start: 10/16/24 09:45 Freq: Status: Active Protocol: Document 11/04/24 11:41 BL (Rec: 11/04/24 13:14 BL Laptop) OP-PT Subjective Patient Comments Patient Comments Pt reports she is doing well, states follow up went great and she was given an ankle brace and instructed to work up towards 5O% of the time being in her brace. PT-OP-D Balance Start: 10/16/24 09:45 Freq: Status: Active Protocol: Document 10/16/24 09:46 BL (Rec: 10/16/24 12:53 BL Laptop) Balance Tests Single Limb Standing Single Limb- Right 1 second Single Limb- Left 1 second PT-OP-H Neuro Start: 10/16/24 09:45 Freq: Status: Active Protocol: Document 10/16/24 09:46 BL (Rec: 10/16/24 12:53 BL Laptop) Sensation Evaluation Comments Summary Comments Pt reports numbness on the bottom of her foot first thing in the morning that resolves within a few minutes Coordination Evaluation Comments Coordination pt reports no changes in coordination. Comments PT-OP-J Posture/Palpation/Skin Start: 10/16/24 09:45 Freq: Status: Active Protocol: Document 10/16/24 09:46 BL (Rec: 10/16/24 12:53 BL Laptop) Posture Evaluation Comments Posture Comments Pt presents with CAM boot and tennis shoe on L LE, demos drop in L pelvis likely due to boot, pt demos slight knee flexion in standing to R side. Skin pink and healthy with no further ecchymosis noted this date. Palpation Assessment Location R ankle Palpation Details Pt demos slight tenderness through lateral ankle over talofibular ligament, increased tissue resistance noted . PT-OP-K Range of Motion Start: 10/16/24 09:45 Freq: Status: Active Protocol: Document 10/16/24 09:46 BL (Rec: 10/16/24 12:53 BL Laptop) Hip Goniometric Range of Motion Hip ROM Limitations Comments HIP AROM porsche WFL Knee Goniometric Range of Motion Knee ROM Limitations Comments Knee AROM porsche WFL Ankle and Foot Goniometric Range of Motion Ankle and Foot Right Dorsiflexion with 2 Knee Flexed Plantarflexion 60 Inversion 25 Eversion 15 left Ankle/Foot ROM WFL Yes Dorsiflexion with 20 Knee Flexed Plantarflexion 60 Inversion 20 Eversion 30 PT-OP-Q Treatments Start: 10/16/24 09:45 Freq: Status: Active Protocol: Document 11/04/24 11:41 BL (Rec: 11/04/24 13:14 BL Laptop) Therapeutic Exercises Sitting Exercises strength Sitting Exercise arch lifts, 4way TB, BAPS board Lvl3 Name Resistance resistance lvl 1 ROM Sitting Exercise alphabet, windshield wipers, towel crunches, heel Name slides Gait Training Gait Activity gait Comments gait and stair training with use of walking pole, pt demos stiff gait pattern, cues for step length. SLS for stability Manual Therapy Treatment Consent Patient gave verbal Yes consent for manual treatment Joint Mobilizations R ankle Comments talo crural AP mob in closed chain, fibular head AP, talo crural distraction. Pt reports improved symptoms following. Navicular mobilization. PT-OP-T Assessment and Plan Start: 10/16/24 09:45 Freq: Status: Active Protocol: Document 11/04/24 11:41 BL (Rec: 11/04/24 13:14 BL Laptop) Physical Therapy Assessment Goals Three Press Setup Operator Goal (LTG) Pt will report being able to go up and down steps with step through pattern by DC for improved independence. Two Press Setup Operator Goal (LTG) Pt will be able to stand on R LE in SLS x 15 seconds by DC for improved safety with ADLS. One Short Term Goal (STG pt will be ind with HEP within 2 visits in order to ) progress toward laborer marine terminal therapy goal outside of therapy visits Press Setup Operator Goal (LTG) Pt will demo improved LEFS score to 80 function or better by DC for return to work duties Assessment Summary Assessment Pt demos good compliance with HEP and tolerates advancement well today. ROM progressing well, advanced HEP for functional mobility this date. Progress per pt tolerance. Plant to follow up with pt after visit with podiatry team next week. Physical Therapy Plan Frequency and Duration Frequency of 2x/Week Treatment Duration of 12 treatment (weeks) Plan of Care Start 10/16/24 Date Plan of Care End 01/08/25 Date Next Visit Focus/Plan Next Note Type Treatment Note Next Visit Plan ankle ROM, strength, Soft tissue mobilization, ankle intrinsics
--- NOTE | 2024-11-13 14:42 | PT.OTN ---
Current Diagnoses Displaced avulsion fracture (chip fracture) of right talus, subsequent encounter for fracture with routine healing (11/13/24) Sprain of tibiofibular ligament of right ankle, subsequent encounter (11/13/24) Physical Therapy Treatment Note PT-OP-A Visit Information Start: 10/16/24 09:45 Freq: Status: Active Protocol: Document 11/13/24 13:41 BL (Rec: 11/13/24 14:41 BL Laptop) Out-Patient Physical Therapy Visit Information Visit Information Visit Type Treatment Note Visit Start Time 13:45 Visit Stop Time 14:25 Visit Number (5) 09/13 (PN by 11/15/24) Number of SENIOR ACCOUNTING SPECIALIST Visits 0 PT-OP-C Subjective Start: 10/16/24 09:45 Freq: Status: Active Protocol: Document 11/13/24 13:41 BL (Rec: 11/13/24 14:41 BL Laptop) OP-PT Subjective Patient Comments Patient Comments Pt presents to the clinic this date and reports she is doing well, states overall improvement in confident with gait with use of ankle brace. Feels unsteady on her R ankle. PT-OP-D Balance Start: 10/16/24 09:45 Freq: Status: Active Protocol: Document 10/16/24 09:46 BL (Rec: 10/16/24 12:53 BL Laptop) Balance Tests Single Limb Standing Single Limb- Right 1 second Single Limb- Left 1 second PT-OP-H Neuro Start: 10/16/24 09:45 Freq: Status: Active Protocol: Document 10/16/24 09:46 BL (Rec: 10/16/24 12:53 BL Laptop) Sensation Evaluation Comments Summary Comments Pt reports numbness on the bottom of her foot first thing in the morning that resolves within a few minutes Coordination Evaluation Comments Coordination pt reports no changes in coordination. Comments PT-OP-J Posture/Palpation/Skin Start: 10/16/24 09:45 Freq: Status: Active Protocol: Document 10/16/24 09:46 BL (Rec: 10/16/24 12:53 BL Laptop) Posture Evaluation Comments Posture Comments Pt presents with CAM boot and tennis shoe on L LE, demos drop in L pelvis likely due to boot, pt demos slight knee flexion in standing to R side. Skin pink and healthy with no further ecchymosis noted this date. Palpation Assessment Location R ankle Palpation Details Pt demos slight tenderness through lateral ankle over talofibular ligament, increased tissue resistance noted . PT-OP-K Range of Motion Start: 10/16/24 09:45 Freq: Status: Active Protocol: Document 10/16/24 09:46 BL (Rec: 10/16/24 12:53 BL Laptop) Hip Goniometric Range of Motion Hip ROM Limitations Comments HIP AROM porsche WFL Knee Goniometric Range of Motion Knee ROM Limitations Comments Knee AROM porsche WFL Ankle and Foot Goniometric Range of Motion Ankle and Foot Right Dorsiflexion with 2 Knee Flexed Plantarflexion 60 Inversion 25 Eversion 15 left Ankle/Foot ROM WFL Yes Dorsiflexion with 20 Knee Flexed Plantarflexion 60 Inversion 20 Eversion 30 PT-OP-Q Treatments Start: 10/16/24 09:45 Freq: Status: Active Protocol: Document 11/13/24 13:41 BL (Rec: 11/13/24 14:41 BL Laptop) Therapeutic Exercises Standing Exercises strength Standing Exercise Lateral walking, lateral step ups, HR, Name Comments 2x10 Gait Training Gait Activity gait Comments backwards walking, cues for foot orientation and knee alignment. Pt demos increased hip sway. PT-OP-T Assessment and Plan Start: 10/16/24 09:45 Freq: Status: Active Protocol: Document 11/13/24 13:41 BL (Rec: 11/13/24 14:41 BL Laptop) Physical Therapy Assessment Goals Three Tree Climber Goal (LTG) Pt will report being able to go up and down steps with step through pattern by DC for improved independence. Two Detention Goal (LTG) Pt will be able to stand on R LE in SLS x 15 seconds by DC for improved safety with ADLS. One Short Term Goal (STG pt will be ind with HEP within 2 visits in order to ) progress toward filler leaf cutter long therapy goal outside of therapy visits Tree Climber Goal (LTG) Pt will demo improved LEFS score to 80 function or better by DC for return to work duties Assessment Summary Assessment Pt continues to progress in skilled Physical Therapy intervention. Pt still quite fearful of falling, demoing stiff posture, continues to demo decreased knee flexion with gait activity and lateral hip sway. Physical Therapy Plan Frequency and Duration Frequency of 2x/Week Treatment Duration of 12 treatment (weeks) Plan of Care Start 10/16/24 Date Plan of Care End 01/08/25 Date Next Visit Focus/Plan Next Note Type Treatment Note Next Visit Plan ankle ROM, strength, Soft tissue mobilization, ankle intrinsic and hip strength.
--- NOTE | 2024-11-27 12:33 | PT.OPPN ---
Current Diagnoses Displaced avulsion fracture (chip fracture) of right talus, subsequent encounter for fracture with routine healing (11/27/24) Sprain of tibiofibular ligament of right ankle, subsequent encounter (11/27/24) Physical Therapy Progress Note PT-OP-A Visit Information Start: 10/16/24 09:45 Freq: Status: Active Protocol: Document 11/27/24 11:32 BL (Rec: 11/27/24 12:32 BL Laptop) Out-Patient Physical Therapy Visit Information Visit Information Visit Type Progress Note Visit Start Time 11:30 Visit Stop Time 12:10 Visit Number (6) 05/16 (PN by 12/28/24) Number of MENTAL HEALTH COUNSELOR Visits 0 PT-OP-C Subjective Start: 10/16/24 09:45 Freq: Status: Active Protocol: Document 11/27/24 11:32 BL (Rec: 11/27/24 12:32 BL Laptop) OP-PT Subjective Patient Comments Patient Comments Pt presents to the clinic this date and reports she is doing well, reports she has a small red spot forming at the end of the brace on the dorsum of her foot by her toes. PT-OP-D Balance Start: 10/16/24 09:45 Freq: Status: Active Protocol: Document 10/16/24 09:46 BL (Rec: 10/16/24 12:53 BL Laptop) Balance Tests Single Limb Standing Single Limb- Right 1 second Single Limb- Left 1 second PT-OP-H Neuro Start: 10/16/24 09:45 Freq: Status: Active Protocol: Document 10/16/24 09:46 BL (Rec: 10/16/24 12:53 BL Laptop) Sensation Evaluation Comments Summary Comments Pt reports numbness on the bottom of her foot first thing in the morning that resolves within a few minutes Coordination Evaluation Comments Coordination pt reports no changes in coordination. Comments PT-OP-J Posture/Palpation/Skin Start: 10/16/24 09:45 Freq: Status: Active Protocol: Document 10/16/24 09:46 BL (Rec: 10/16/24 12:53 BL Laptop) Posture Evaluation Comments Posture Comments Pt presents with CAM boot and tennis shoe on L LE, demos drop in L pelvis likely due to boot, pt demos slight knee flexion in standing to R side. Skin pink and healthy with no further ecchymosis noted this date. Palpation Assessment Location R ankle Palpation Details Pt demos slight tenderness through lateral ankle over talofibular ligament, increased tissue resistance noted . PT-OP-K Range of Motion Start: 10/16/24 09:45 Freq: Status: Active Protocol: Document 10/16/24 09:46 BL (Rec: 10/16/24 12:53 BL Laptop) Hip Goniometric Range of Motion Hip ROM Limitations Comments HIP AROM porsche WFL Knee Goniometric Range of Motion Knee ROM Limitations Comments Knee AROM porsche WFL Ankle and Foot Goniometric Range of Motion Ankle and Foot Measured in Degrees Right Dorsiflexion with 2 Knee Flexed Plantarflexion 60 Inversion 25 Eversion 15 left Ankle/Foot ROM WFL Yes Dorsiflexion with 20 Knee Flexed Plantarflexion 60 Inversion 20 Eversion 30 PT-OP-T Assessment and Plan Start: 10/16/24 09:45 Freq: Status: Active Protocol: Document 11/27/24 11:32 BL (Rec: 11/27/24 12:32 BL Laptop) Physical Therapy Assessment Goals Three Cardiac Cath Technologist Goal (LTG) Pt will report being able to go up and down steps with step through pattern by DC for improved independence. ( progressing) 11/27/24: improved pattern however still considerable shaking to R quad with descent Two Cardiac Cath Technologist Goal (LTG) Pt will be able to stand on R LE in SLS x 15 seconds by DC for improved safety with ADLS. (progressing) 11/27/24: L 14 sec, R 8 sec this date, One Short Term Goal (STG pt will be ind with HEP within 2 visits in order to ) progress toward detention therapy goal outside of therapy visits (Goal Met) [facility] Goal (LTG) Pt will demo improved LEFS score to 80 function or better by DC for return to work duties (progressing) : pt progressing per report Assessment Summary Assessment Pt continues to progress, demos full AROM of R ankle, improved ankle strength. Pt continues to demo deficits in gait and balance and continues to benefit from strength and endurance training to knee and hip for improved gait and confidence with balance activities. Physical Therapy Plan Frequency and Duration Frequency of 2x/Week Treatment Duration of 12 treatment (weeks) Plan of Care Start 10/16/24 Date Plan of Care End 01/08/25 Date Next Visit Focus/Plan Next Note Type Treatment Note Next Visit Plan ankle ROM, strength, Soft tissue mobilization, ankle intrinsic and kne/ hip strength.
--- NOTE | 2024-12-02 12:39 | PT.OTN ---
Current Diagnoses Displaced avulsion fracture (chip fracture) of right talus, subsequent encounter for fracture with routine healing (12/02/24) Sprain of tibiofibular ligament of right ankle, subsequent encounter (12/02/24) Physical Therapy Treatment Note PT-OP-A Visit Information Start: 10/16/24 09:45 Freq: Status: Active Protocol: Document 12/02/24 11:33 BL (Rec: 12/02/24 12:39 BL Laptop) Out-Patient Physical Therapy Visit Information Visit Information Visit Type Treatment Note Visit Start Time 11:30 Visit Stop Time 12:15 Visit Number (7) 2/10 (PN by 12/28/24) Number of SHELTER ADVOCATE Visits 0 PT-OP-C Subjective Start: 10/16/24 09:45 Freq: Status: Active Protocol: Document 12/02/24 11:33 BL (Rec: 12/02/24 12:39 BL Laptop) OP-PT Subjective Patient Comments Patient Comments Pt presents to the clinic this date and reports she is doing well, states overall feels her hip and knee are more of the concern this date. Continues to feel unsure of her turning. States follow up with surgeon is next week on the . PT-OP-D Balance Start: 10/16/24 09:45 Freq: Status: Active Protocol: Document 10/16/24 09:46 BL (Rec: 10/16/24 12:53 BL Laptop) Balance Tests Single Limb Standing Single Limb- Right 1 second Single Limb- Left 1 second PT-OP-H Neuro Start: 10/16/24 09:45 Freq: Status: Active Protocol: Document 10/16/24 09:46 BL (Rec: 10/16/24 12:53 BL Laptop) Sensation Evaluation Comments Summary Comments Pt reports numbness on the bottom of her foot first thing in the morning that resolves within a few minutes Coordination Evaluation Comments Coordination pt reports no changes in coordination. Comments PT-OP-J Posture/Palpation/Skin Start: 10/16/24 09:45 Freq: Status: Active Protocol: Document 10/16/24 09:46 BL (Rec: 10/16/24 12:53 BL Laptop) Posture Evaluation Comments Posture Comments Pt presents with CAM boot and tennis shoe on L LE, demos drop in L pelvis likely due to boot, pt demos slight knee flexion in standing to R side. Skin pink and healthy with no further ecchymosis noted this date. Palpation Assessment Location R ankle Palpation Details Pt demos slight tenderness through lateral ankle over talofibular ligament, increased tissue resistance noted . PT-OP-K Range of Motion Start: 10/16/24 09:45 Freq: Status: Active Protocol: Document 10/16/24 09:46 BL (Rec: 10/16/24 12:53 BL Laptop) Hip Goniometric Range of Motion Hip ROM Limitations Comments HIP AROM porsche WFL Knee Goniometric Range of Motion Knee ROM Limitations Comments Knee AROM porsche WFL Ankle and Foot Goniometric Range of Motion Ankle and Foot Right Dorsiflexion with 2 Knee Flexed Plantarflexion 60 Inversion 25 Eversion 15 left Ankle/Foot ROM WFL Yes Dorsiflexion with 20 Knee Flexed Plantarflexion 60 Inversion 20 Eversion 30 PT-OP-Q Treatments Start: 10/16/24 09:45 Freq: Status: Active Protocol: Document 12/02/24 11:33 BL (Rec: 12/02/24 12:39 BL Laptop) Therapeutic Exercises Sidelying Exercises strength Sidelying Exercise clamshells, reverse clamshells Name Sitting Exercises strength Sitting Exercise arch lifts, 4way TB, (reviewed for home HEP) Name Resistance resistance lvl 3 Standing Exercises strength 2 Standing Exercise 12 in step lunges, wall lunges Name strength Standing Exercise Lateral walking, lateral step ups, HR, Name Comments 2x10 Gait Training Gait Activity gait Comments reviewed gait without brace in tennis shoe. Focus on heel strike. Pt continues to demo medial patella alignment bilateral with R>L. Demos improved quad control this date. Neuro Re-Education Treatment Balance Activities Static STance Details Static stance x 60 sec in NBOS and HR Equipment Black Level 1 foam PT-OP-T Assessment and Plan Start: 10/16/24 09:45 Freq: Status: Active Protocol: Document 12/02/24 11:33 BL (Rec: 12/02/24 12:39 BL Laptop) Physical Therapy Assessment Goals Three Mcc Goal (LTG) Pt will report being able to go up and down steps with step through pattern by DC for improved independence. ( progressing) 11/27/24: improved pattern however still considerable shaking to R quad with descent Two Dynamics Ax Developer Goal (LTG) Pt will be able to stand on R LE in SLS x 15 seconds by DC for improved safety with ADLS. (progressing) 11/27/24: L 14 sec, R 8 sec this date, One Short Term Goal (STG pt will be ind with HEP within 2 visits in order to ) progress toward [facility] therapy goal outside of therapy visits (Goal Met) Dynamics Ax Developer Goal (LTG) Pt will demo improved LEFS score to 80 function or better by DC for return to work duties (progressing) : pt progressing per report Assessment Summary Assessment Pt demos continues to demo decreased hip stability with gait. Focus on hip abduction and ER control this date with good fatigue noted. Adjusted HEP for home strength focus. Ankle ROM and strength continues to progress well. Physical Therapy Plan Frequency and Duration Frequency of 2x/Week Treatment Duration of 12 treatment (weeks) Plan of Care Start 10/16/24 Date Plan of Care End 01/08/25 Date Next Visit Focus/Plan Next Note Type Treatment Note Next Visit Plan ankle ROM, strength, Soft tissue mobilization, ankle intrinsic and knee strength, hip ER and abduction strength.
--- NOTE | 2025-01-14 14:06 | PT.OPDS ---
Current Diagnoses Displaced avulsion fracture (chip fracture) of right talus, subsequent encounter for fracture with routine healing (12/02/24) Sprain of tibiofibular ligament of right ankle, subsequent encounter (12/02/24) Visit Care Team Role Provider Type Onofre Dias MD Family Provider Non-Staff Primary Care Provider Specialty: Medical Address: [address] [place] [address], [id number] Email: Aurelio Mares DPM Attending Provider Physician Referring Provider Specialty: Orthopedics Orthopedic Surgery Podiatry General Surgery Address: [address] [place] [address], [place], [address] Email: [email or web address] Visit Number Visit Number (7) 2 (PN by 12/28/24) Discharge Summary Unable to follow up with pt, plan to DC pt at this time. PT-OP-A Visit Information Start: 10/16/24 09:45 Freq: Status: Active Protocol: Document 12/02/24 11:33 BL (Rec: 12/02/24 12:39 BL Laptop) Out-Patient Physical Therapy Visit Information Visit Information Visit Type Treatment Note Visit Start Time 11:30 Visit Stop Time 12:15 Visit Number (7) 210 (PN by 12/28/24) Number of CADET DECK Visits 0 PT-OP-C Subjective Start: 10/16/24 09:45 Freq: Status: Active Protocol: Document 12/02/24 11:33 BL (Rec: 12/02/24 12:39 BL Laptop) OP-PT Subjective Patient Comments Patient Comments Pt presents to the clinic this date and reports she is doing well, states overall feels her hip and knee are more of the concern this date. Continues to feel unsure of her turning. States follow up with surgeon is next week on the . PT-OP-D Balance Start: 10/16/24 09:45 Freq: Status: Active Protocol: Document 10/16/24 09:46 BL (Rec: 10/16/24 12:53 BL Laptop) Balance Tests Single Limb Standing Single Limb- Right 1 second Single Limb- Left 1 second PT-OP-H Neuro Start: 10/16/24 09:45 Freq: Status: Active Protocol: Document 10/16/24 09:46 BL (Rec: 10/16/24 12:53 BL Laptop) Sensation Evaluation Comments Summary Comments Pt reports numbness on the bottom of her foot first thing in the morning that resolves within a few minutes Coordination Evaluation Comments Coordination pt reports no changes in coordination. Comments PT-OP-J Posture/Palpation/Skin Start: 10/16/24 09:45 Freq: Status: Active Protocol: Document 10/16/24 09:46 BL (Rec: 10/16/24 12:53 BL Laptop) Posture Evaluation Comments Posture Comments Pt presents with CAM boot and tennis shoe on L LE, demos drop in L pelvis likely due to boot, pt demos slight knee flexion in standing to R side. Skin pink and healthy with no further ecchymosis noted this date. Palpation Assessment Location R ankle Palpation Details Pt demos slight tenderness through lateral ankle over talofibular ligament, increased tissue resistance noted . PT-OP-K Range of Motion Start: 10/16/24 09:45 Freq: Status: Active Protocol: Document 10/16/24 09:46 BL (Rec: 10/16/24 12:53 BL Laptop) Hip Goniometric Range of Motion Hip ROM Limitations Comments HIP AROM porsche WFL Knee Goniometric Range of Motion Knee ROM Limitations Comments Knee AROM porsche WFL Ankle and Foot Goniometric Range of Motion Ankle and Foot Right Dorsiflexion with 2 Knee Flexed Plantarflexion 60 Inversion 25 Eversion 15 left Ankle/Foot ROM WFL Yes Dorsiflexion with 20 Knee Flexed Plantarflexion 60 Inversion 20 Eversion 30 PT-OP-T Assessment and Plan Start: 10/16/24 09:45 Freq: Status: Active Protocol: Document 12/02/24 11:33 BL (Rec: 12/02/24 12:39 BL Laptop) Physical Therapy Assessment Goals Three Care Home Goal (LTG) Pt will report being able to go up and down steps with step through pattern by DC for improved independence. ( progressing) 11/27/24: improved pattern however still considerable shaking to R quad with descent Two Butadiene Converter Operator Goal (LTG) Pt will be able to stand on R LE in SLS x 15 seconds by DC for improved safety with ADLS. (progressing) 11/27/24: L 14 sec, R 8 sec this date, One Short Term Goal (STG pt will be ind with HEP within 2 visits in order to ) progress toward long term care administrator therapy goal outside of therapy visits (Goal Met) Care Home Goal (LTG) Pt will demo improved LEFS score to 80 function or better by DC for return to work duties (progressing) : pt progressing per report Assessment Summary Assessment Pt demos continues to demo decreased hip stability with gait. Focus on hip abduction and ER control this date with good fatigue noted. Adjusted HEP for home strength focus. Ankle ROM and strength continues to progress well. Physical Therapy Plan Frequency and Duration Frequency of 2x/Week Treatment Duration of 12 treatment (weeks) Plan of Care Start 10/16/24 Date Plan of Care End 01/08/25 Date Next Visit Focus/Plan Next Note Type Treatment Note Next Visit Plan ankle ROM, strength, Soft tissue mobilization, ankle intrinsic and knee strength, hip ER and abduction strength.
== END 2025-01-15 13:23 | disposition home or self-care (01) ==
LOC: PHYS 11:30
PROVIDERS: Family Provider Family Medicine; PCP Family Medicine; Referring Provider Podiatrist Foot & Ankle Surgery; Visit Provider Podiatrist Foot & Ankle Surgery
DX: S93.431D Sprain of tibiofibular ligament of right ankle, subsequent encounter (principal); S92.151D Displaced avulsion fracture (chip fracture) of right talus, subsequent encounter for fracture with routine healing
CPT/HCPCS: 97110; 97112; 97116; 97140